=== PATIENT | female | born 1965 | race Caucasian/White ===

== ENCOUNTER 2021-12-15 07:48 | Outpatient (REF) | payer BC, SELFPAY ==
[2021-12-15 11:07] LABS: MANUAL DIFF FLAG NO
[2021-12-15 11:20] LABS: Basophils Absolute Auto 0.1 X10*3/uL (0.0-0.2); Basophils Percent Auto 1.1 % (0-2); Eosinophils Absolute Auto 0.3 X10*3/uL (0.0-0.4); Eosinophils Percent Auto 5.4 % (0-4); Hemoglobin 12.4 g/dl (12.0-16.0); Imm Gran Abs Auto 0.01 X10*3/uL (0.00-0.03); Imm Gran Pct Auto 0.2 % (0.0-0.4); Lymphocytes Absolute Auto 1.6 X10*3/uL (1.2-4.9); Mean Corpuscular HGB Conc 31.8 g/dl (31.0-35.0); Mean Corpuscular Hemoglobin 26.7 pg (27.0-33.0); Mean Corpuscular Volume 84.1 fL (80.0-98.0); Mean Platelet Volume 11.4 fL (9.4-12.3); Monocytes Absolute Auto 0.4 X10*3/uL (0.1-1.2); Monocytes Percent Auto 7.3 % (2-11); Neutrophils Absolute Auto 3.3 x10*3/uL (2.0-8.3); Platelet Count 248 X10*3/uL (160-400); Red Blood Count 4.64 X10*6/uL (4.20-5.50); Red Cell Distribution Width 13.7 % (11.0-16.0); White Blood Count 5.6 X10*3/uL (4.8-10.8)
[2021-12-15 11:22] LABS: Appearance Urine CLEAR; Color Urine YELLOW; Glucose Urine UA NEG (NEG); Leukocyte Esterase Urine NEG (NEG); Nitrite Urine NEG (NEG); PH 7.5 (5.0-8.0); Specific Gravity - Urine 1.015 (1.005-1.025); Urine Blood TRACE (NEG); Urine Ketones NEG (NEG); Urine Protein NEG (NEG-TRACE)
[2021-12-15 11:42] LABS: Alanine Aminotransferase 14 U/L (0-31); Albumin Level 4.1 g/dL (3.5-5.0); Alkaline Phosphatase 77 U/L (39-117); Anion Gap 10 (12-20); Aspartate Amino Transferase 18 U/L (5-31); Bilirubin Total 0.9 mg/dL (0.0-1.0); Blood Urea Nitrogen 21 mg/dL (9-16); Calcium 9.4 mg/dL (8.4-10.2); Carbon Dioxide 30 mmol/L (22-29); Chloride 104 mmol/L (96-108); Cholesterol 174 mg/dL; Estimated Glomerular Filt Rate > 60; Glucose Fasting 86 mg/dL (60-99); HDL Cholesterol 58 mg/dL; LDL Cholesterol Calculated 105 mg/dl; Potassium 4.1 mmol/L (3.3-5.1); Sodium 140 mmol/L (135-145); Total Protein 6.4 g/dL (6.5-8.0); Triglycerides 56 mg/dL
[2021-12-15 12:06] LABS: TSH reflex Free T4 1.04 uIU/mL (0.32-4.0)
[2021-12-15 13:15] LABS: Squamous Epithelial Cell Urine 1+ /LPF
== END 2021-12-15 07:49 | disposition home or self-care (01) ==
LOC: HO.WFDLDS 07:48
PROVIDERS: Visit Provider Family Medicine
DX: Z00.00 Encounter for general adult medical examination without abnormal findings (principal)
CPT/HCPCS: 36415; 80053; 80061; 81001; 84443; 85025

== ENCOUNTER 2023-01-21 07:59 | Outpatient (REF) | payer BC, SELFPAY ==
[2023-01-21 08:12] LABS: MANUAL DIFF FLAG NO
[2023-01-21 08:25] LABS: Basophils Absolute Auto 0.1 X10*3/uL (0.0-0.2); Basophils Percent Auto 1.1 % (0-2); Eosinophils Absolute Auto 0.3 X10*3/uL (0.0-0.4); Eosinophils Percent Auto 6.5 % (0-4); Hematocrit 39.6 % (37.0-47.0); Hemoglobin 13.1 g/dl (12.0-16.0); Imm Gran Abs Auto 0.02 X10*3/uL (0.00-0.03); Imm Gran Pct Auto 0.4 % (0.0-0.4); Lymphocytes Absolute Auto 1.6 X10*3/uL (1.2-4.9); Lymphocytes Percent Auto 30.7 % (20-40); Mean Corpuscular HGB Conc 33.1 g/dl (31.0-35.0); Mean Corpuscular Hemoglobin 27.9 pg (27.0-33.0); Mean Corpuscular Volume 84.4 fL (80.0-98.0); Mean Platelet Volume 10.7 fL (9.4-12.3); Monocytes Absolute Auto 0.4 X10*3/uL (0.1-1.2); Monocytes Percent Auto 8.2 % (2-11); Neutrophils Absolute Auto 2.8 x10*3/uL (2.0-8.3); Neutrophils Percent Auto 53.1 % (45-73); Platelet Count 225 X10*3/uL (160-400); Red Blood Count 4.69 X10*6/uL (4.20-5.50); Red Cell Distribution Width 13.8 % (11.0-16.0); White Blood Count 5.2 X10*3/uL (4.8-10.8)
[2023-01-21 09:20] LABS: Alanine Aminotransferase 15 U/L (0-31); Albumin Level 4.1 g/dL (3.5-5.0); Alkaline Phosphatase 76 U/L (39-117); Anion Gap 13 (12-20); Aspartate Amino Transferase 17 U/L (5-31); Bilirubin Total 0.8 mg/dL (0.0-1.0); Blood Urea Nitrogen 25 mg/dL (9-16); Calcium 9.1 mg/dL (8.4-10.2); Carbon Dioxide 27 mmol/L (22-29); Chloride 107 mmol/L (96-108); Cholesterol 181 mg/dL; Estimated Glomerular Filt Rate > 60; Glucose Fasting 89 mg/dL (60-99); HDL Cholesterol 61 mg/dL; Iron 79 mcg/dL (30-160); LDL Cholesterol Calculated 111 mg/dl; Percent Iron Saturation 29 % (15-50); Potassium 4.2 mmol/L (3.3-5.1); Sodium 143 mmol/L (135-145); TSH reflex Free T4 1.07 uIU/mL (0.32-4.0); Total Iron Binding Capacity 270 mcg/dL (228-428); Total Protein 6.1 g/dL (6.5-8.0); Triglycerides 49 mg/dL; Unsaturated Iron Binding 191 ug/dL; Vitamin D 25-OH Total 64.7 ng/mL (>30)
[2023-01-21 09:33] LABS: Appearance Urine Cloudy; Color Urine Yellow; Glucose Urine UA Negative (Negative); Leukocyte Esterase Urine Negative (Negative); Nitrite Urine Negative (Negative); PH 8.5 (5.0-9.0); UMIC TRIGGER UA YES; Urine Blood Trace (Negative); Urine Ketones Negative (Negative); Urine Protein Negative (Neg-Trace)
[2023-01-21 09:38] LABS: Bacteria Urine None Seen (None Seen); Hyaline Casts Urine 0-2 /LPF (0-2); Squamous Epithelial Cell Urine 0-2 /HPF (0-2); WBC Urine 0-5 /HPF (0-5)
[2023-01-21 10:05] LABS: Creatinine Urine 107.44 mg/dL; Microalbum/Creatinine Ratio Ur 5.5 ug/mg cr
== END 2023-01-21 08:00 | disposition home or self-care (01) ==
LOC: HO.LAB 07:59
PROVIDERS: PCP Family Medicine; Visit Provider Family Medicine
DX: Z00.00 Encounter for general adult medical examination without abnormal findings (principal); E55.9 Vitamin D deficiency, unspecified; E61.1 Iron deficiency; I10 Essential (primary) hypertension
CPT/HCPCS: 36415; 80053; 80061; 81001; 82043; 82306; 83540; 84443; 85025

== ENCOUNTER 2025-06-27 14:52 | Outpatient (AMB) | payer BC, SELFPAY | END 2025-06-27 15:01 | disposition home or self-care (01) | LOC: HO.HMGAL 14:52 | PROVIDERS: PCP Family Medicine; Visit Provider Registered Nurse Emergency | DX: J30.89 Other allergic rhinitis (principal) | CPT/HCPCS: 95117; 95165 ==

== ENCOUNTER 2025-07-04 15:04 | Outpatient (AMB) | payer BC, SELFPAY | END 2025-07-04 15:09 | disposition home or self-care (01) | LOC: HO.HMGAL 15:04 | PROVIDERS: PCP Family Medicine; Visit Provider Registered Nurse Emergency | DX: J30.89 Other allergic rhinitis (principal) | CPT/HCPCS: 95117; 95165 ==

== ENCOUNTER 2025-07-11 16:16 | Outpatient (AMB) | payer BC, SELFPAY | END 2025-07-11 16:18 | disposition home or self-care (01) | LOC: HO.HMGAL 16:16 | PROVIDERS: PCP Family Medicine; Visit Provider Registered Nurse Emergency | DX: J30.89 Other allergic rhinitis (principal) | CPT/HCPCS: 95117; 95165 ==

== ENCOUNTER 2025-07-12 16:23 | Outpatient (AMB) | payer BC, SELFPAY ==
--- NOTE | 2025-07-12 16:24 | MHC.PC.OV ---
Vital Signs 07/12/25 16:29 Height 6 ft 1 in Weight 191 lb 2 oz BMI 25.2 BP 114/68 Blood Pressure Location Rt brachial Position Sitting Respiration 15 Pulse 72 Pulse Source Pulse Oximeter Temp 98 F Temp Source Temporal Artery Scan Pulse Oximetry (%) 96 Oxygen Delivery Method Room Air Intake Visit Reasons: CPE Intake Note: Gia presents in the office today for her annual physical. Allergies penicillin G Allergy (Unknown, Verified 07/12/25 16:27) hair and skin problems penicillin V Allergy (Unknown, Verified 07/12/25 16:27) rash Penicillins (PENICILLINS) Allergy (Unknown, Verified 07/12/25 16:27) HAIR FALLS OUT, BLISTERING SKIN Medication List - Last Reconciled 07/12/25 by KAIT Hernandez loratadine (Claritin) 10 mg PO DAILY Tobacco use date assessed: 07/12/25 Dental Screening Dental Screen Date: 07/12/25 Did you have a dental visit in the last 12 months?: Yes Did you have a dental problem in the last 6 months where you did not have access to dental care?: No Was dental information given to patient?: Patient has dentist HPI HPI Comments History of Present Illness Details This is a 60-year-old female who presents for a physical exam. Donor Services Coordinator is Dr. Borges. She has mammogram and bone densities through that office. She is overdue for a colonoscopy. Referred. Four weeks ago patient caught her left pinky toe on her mother's wheelchair. Since then she has pain and swelling. It is getting better. No numbness or tingling. Initially there was substantial bruising which improved. ROS: Constitutional: No unexplained weight loss, fever, chills, fatigue or night sweats. Eyes: No vision changes, blurry vision, double vision, eye pain. Eye itching related to seasonal allergies treated with lxtd-lgw-gvlbmtn drops. ENT: No hearing loss, sneezing, congestion, runny nose or sore throat. Respiratory: No shortness of breath, cough or sputum production. Cardiovascular: No chest pain, chest pressure or chest discomfort. No palpitations or pedal edema. Gastrointestinal: No anorexia, nausea, vomiting or diarrhea. No abdominal pain or blood in stool. Genitourinary: No dysuria, hematuria, urinary frequency. Neurologic: No headache, dizziness, syncope, unilateral weakness, ataxia, numbness or tingling in the extremities. Musculoskeletal: See HPI Hematologic/Lymphatics: No bleeding or bruising. No painful lymph nodes. Skin: No rash or itching. Endocrine: No cold or heat intolerance. No polyuria or polydipsia. Psychiatric: No depression or anxiety. No SI/HI. Physical exam: Constitutional: Alert, in no distress. Head: Normocephalic. Eyes: Pupils are equal, round and reactive to light. Extraocular muscles intact. Ear, Nose and Throat: Canals clear. TMs normal. Normal nasal mucosa. No nasal discharge. No oral lesions. Neck: Supple, Full range of motion. No lymphadenopathy. No palpable thyroid masses. Respiratory: Clear to auscultation. Cardiovascular: S1 S2 regular. No murmurs. No carotid bruits. Gastrointestinal: Abdomen soft, non-tender, non-distended. Normal bowel sounds. No palpable masses. Neurologic: No focal neurological deficits. Symmetric patellar reflexes. Moves all extremities spontaneously. Sensation intact bilaterally. Skin: No rashes Musculoskeletal: No gross deformities. Normal range of motion. Extremities: Warm and well perfused. No clubbing, cyanosis or edema. Intact pedal pulses. Foot: Neurovascularly intact. Swelling , light ecchymosis and tenderness of the distal left 5th metatarsal and nontender swelling and ecchymosis of the left 5th toe. No obvious deformity. Patient is able to bend the toes and walk. Psychiatric: Normal mood and affect [facility] Medical History (Updated 07/12/25 @ 17:14 by KAIT Hernandez) Injury of foot, left Routine physical examination Social History (Updated 07/12/25 @ 16:29 by Ana Lilia Jay CMA) Housing: House Alcohol intake: current Patient Tobacco Use Status: Never used Tobacco e-Cigarette/Vaping Use: Never Used Second Hand Smoke Exposure: No service: No Current occupational status: employed Current occupational exposures/hazards: No Cognitive needs: No Hearing needs: No Vision needs: No Questionnaire PHQ-9 Over the last 2 weeks, how often have you been bothered by any of the following problems? 1. Little interest or pleasure in doing things: not at all 2. Feeling down, depressed, or hopeless: not at all 3. Trouble falling or staying asleep, or sleeping too much: several days 4. Feeling tired or having little energy: several days 5. Poor appetite or overeating: not at all 6. Feeling bad about yourself - or that you are a failure or have let yourself or your family down: not at all 7. Trouble concentrating on things, such as reading the newspaper or watching television: not at all 8. Moving or speaking so slowly that other people could have noticed. Or the opposite - being so fidgety or restless that you have been moving around a lot more than usual: not at all 9. Thoughts that you would be better off or of hurting yourself in some way: not at all Total score: 2 Depression Screening Interpretation: Negative Depression Screening Done: Yes 95011 - PHQ-9 Billing: Yes Source: Developed by Drs. Doug Melchor, Alma Delia Yee, Prosper Dee and colleagues, with an educational jeremy from [employer]. Thrive Questionnaire Date Thrive assessed: 07/12/25 I am a: Patient What is your living situation today?: I have a steady place to live Within the past 12 months, did the food you bought not last and you didn't have the money to get more?: Never true Within the past 12 months, did you worry whether your food would run out before you got money to buy more?: Never true Do you have trouble paying for medicines?: No Do you have trouble getting transportation to medical appointments?: No Do you have trouble paying your heating and electricity bill?: No Do you have trouble taking care of your child, family member or friend?: No Do you have trouble with day-to-day activities such as bathing, preparing meals, shopping, managing finances, etc.?: No Are you currently unemployed and looking for a job?: No Are you interested in more education?: Yes Please select the resources that you would like help with: None Currently or been in a relationship where the following occur: No concerns reported THRIVE Score: 0 AUDIT C Alcohol Use Questionnaire (AUDIT-C) 1. How often do you have a drink containing alcohol?: 2-4 times a month 2. How many drinks containing alcohol do you have on a typical day when you are drinking?: 1 or 2 3. How often do you have six or more drinks on one occasion?: Never Total Score: 2 SHARLENE-7 AMB Questionnaire SHARLENE-7 Date SHARLENE - 7 assessed: 07/12/25 Feeling nervous, anxious, or on edge: 0 = Not at all Not being able to stop or control worryin = Not at all Worrying too much about different things: 0 = Not at all Trouble relaxin = Not at all Being so restless that it is hard to sit still: 0 = Not at all Becoming easily annoyed or irritable: 0 = Not at all Feeling afraid as if something awful might happen: 0 = Not at all Total SHARLENE-7 score (0-4 normal; 5-9 mild; 10-14 moderate; 15-21 severe): 0 Source: Developed by Drs. Doug Melchor, Alma Delia Yee, Prosper Dee and colleagues, with an educational jeremy from [employer]. SHARLENE-7 Assessment Billing SHARLENE-7 Assessment Tool: SHARLENE-7 Assessment 55034 Physical exam (Primary Care) Vital Signs: Last Vital Signs Temp 98 F 07/12/25 16:29 Pulse 72 07/12/25 16:29 Resp 15 07/12/25 16:29 BP 114/68 07/12/25 16:29 Pulse Ox 96 07/12/25 16:29 Oxygen Delivery Method Room Air 07/12/25 16:29 BMI result Body Mass Index 25.2 Tobacco/Smoking Status: Tobacco use Status Tobacco use date assessed 07/12/25 07/12/25 16:31 Patient Tobacco Use Status Never used Tobacco 07/12/25 16:29 e-Cigarette/Vaping Use Never Used 07/12/25 16:29 PHQ-9: PHQ-9 Score PHQ-9: Total score 2 07/12/25 16:26 Depression Screening Interpretation: Negative Thrive Assessment: Date of Thrive Assessment Date Thrive assessed 07/12/25 07/12/25 16:26 Currently or been in a relationship where the following occur: No concerns reported Coding Level of Care Code Est Pt Prev Care 40-64y(76588) Diagnoses Routine physical examination Z00.00 Additional Codes SHARLENE-7 Assessment Billing - SHARLENE-7 Assessment Tool: SHARLENE-7 Assessment 11839 ([id number]) PHQ-9 - 83745 - PHQ-9 Billing: Yes ([id number]) Assessment & Plan Assessment & Plan (1) Routine physical examination: Code(s): Z00.00 - Encounter for general adult medical examination without abnormal findings Category: Medical Plan Patient is seen today for a routine physical. As part of this visit we reviewed the following issues, which are considered and essential part of preventative health in this age group: - Breast Cancer screening - Annual Stitchdowns Toe Former exam - Screening for colon cancer - Blood pressure screening annually - Cholesterol screening - Osteoporosis prevention including calcium/vitamin D intake, weight bearing exercise & smoking cessation - Nutritional and exercise counseling - Counseling of injury prevention including fire prevention, smoke alarms and seat belt usage - Screening for depression - Education about skin cancer - Recommendations about immunizations - Recommendation of an eye exam - Screening for substance abuse X-ray ordered for evaluation of left foot trauma. Schedule physical in 1 year. Orders: Orders Lipid Panel Today Z00.00 - Encounter for general adult medical examination without abnormal findings XR foot LT min 3V Today S99.922A - Unspecified injury of left foot, initial encounter Complete Blood Count no Diff Today Z00.00 - Encounter for general adult medical examination without abnormal findings Comprehensive Met. Panel Today Z00.00 - Encounter for general adult medical examination without abnormal findings Referrals Gastroenterology Referral Z12.11 - Encounter for screening for malignant neoplasm of colon
[2025-07-12 16:29] VITALS: BP 114/68; PULSE 72; RESP 15; TEMP 36.6; O2SAT 96; BMI 25.2
== END 2025-07-12 16:57 | disposition home or self-care (01) ==
LOC: HO.HMCFM 16:24
PROVIDERS: PCP Family Medicine; Visit Provider Physician Assistant Medical
DX: Z00.00 Encounter for general adult medical examination without abnormal findings (principal)

== ENCOUNTER → 2025-07-12 16:23 | Outpatient (BNVA) | payer BC, SELFPAY | PROVIDERS: PCP Family Medicine; Visit Provider Physician Assistant Medical | DX: Z00.01 Encounter for general adult medical examination with abnormal findings (principal); S99.922A Unspecified injury of left foot, initial encounter; Z13.31 Encounter for screening for depression; Z13.39 Encounter for screening examination for other mental health and behavioral disorders; X58.XXXA Exposure to other specified factors, initial encounter; Y93.9 Activity, unspecified; Y92.9 Unspecified place or not applicable; Y99.9 Unspecified external cause status | CPT/HCPCS: 96127 ==

== ENCOUNTER 2025-07-18 16:23 | Outpatient (AMB) | payer BC, SELFPAY | END 2025-07-18 16:24 | disposition home or self-care (01) | LOC: HO.HMGAL 16:23 | PROVIDERS: PCP Family Medicine; Visit Provider Registered Nurse Emergency | DX: J30.89 Other allergic rhinitis (principal) | CPT/HCPCS: 95117; 95165 ==

== ENCOUNTER 2025-07-19 07:49 | Outpatient (REF) | payer BC, SELFPAY ==
--- NOTE | ~2025-07-19 | XR_ITS ---
EXAMINATION: XR FOOT, LEFT CLINICAL INFORMATION: S99.922A - Unspecified injury of left foot, initial encounter COMPARISON: None available. TECHNIQUE: AP, lateral, and oblique views of the left foot. FINDINGS: Subacute appearing, partially healing minimally displaced spiral fracture of the fifth digit proximal phalanx involving the diaphysis. There is some periosteal new bone formation noted suggesting healing. The fifth metatarsal is intact. There is no additional fracture, dislocation, or suspicious bone lesion. Alignment is normal. Normal plantar arch. The midfoot and hindfoot appear normal. There is a small plantar calcaneal spur. No soft tissue abnormalities. XR/XR foot LT min 3V IMPRESSION: Subacute, healing minimally displaced spiral fracture of the proximal phalanx of the fifth digit. Electronically signed by: Saad Villanueva MD 07/19/2025 08:40 AM EDT
[2025-07-19 08:46] LABS: Hematocrit 40.7 % (37.0-47.0); Hemoglobin 13.4 g/dl (12.0-16.0); Mean Corpuscular HGB Conc 32.9 g/dl (31.0-35.0); Mean Corpuscular Hemoglobin 27.3 pg (27.0-33.0); Mean Corpuscular Volume 83.1 fL (80.0-98.0); NRBC Abs Auto 0.000 X10*3/uL (0.0-0.012); NRBC Pct Auto 0.0 /100WBC (0.0-0.2); Platelet Count 229 X10*3/uL (160-400); Red Blood Count 4.90 X10*6/uL (4.20-5.50); White Blood Count 5.5 X10*3/uL (4.8-10.8)
[2025-07-19 09:47] LABS: Alanine Aminotransferase 18 U/L (0-31); Albumin Level 4.5 g/dL (3.5-5.0); Alkaline Phosphatase 83 U/L (39-117); Anion Gap 9 (12-20); Aspartate Amino Transferase 22 U/L (5-31); Blood Urea Nitrogen 20 mg/dL (9-16); Calcium 9.3 mg/dL (8.4-10.2); Carbon Dioxide 29 mmol/L (22-29); Chloride 108 mmol/L (96-108); Cholesterol 178 mg/dL (<200); Estimated Glomerular Filt Rate > 60; HDL Cholesterol 65 mg/dL (>40); Potassium 4.0 mmol/L (3.3-5.1); Sodium 142 mmol/L (135-145); Total Protein 6.5 g/dL (6.5-8.0); Triglycerides 56 mg/dL (<150)
== END 2025-07-19 07:50 | disposition home or self-care (01) ==
LOC: HO.LAB 07:49
PROVIDERS: PCP Physician Assistant Medical; Visit Provider Physician Assistant Medical
DX: Z00.00 Encounter for general adult medical examination without abnormal findings (principal); Z13.6 Encounter for screening for cardiovascular disorders; S99.922A Unspecified injury of left foot, initial encounter
CPT/HCPCS: 36415; 73630; 80053; 80061; 85027

== ENCOUNTER → 2025-07-19 08:09 | Outpatient (BNV) | payer BC, SELFPAY | PROVIDERS: PCP Physician Assistant Medical; Visit Provider Radiology Diagnostic Radiology | DX: S99.922D Unspecified injury of left foot, subsequent encounter (principal) | CPT/HCPCS: 73630 ==

== ENCOUNTER 2025-07-26 14:25 | Outpatient (AMB) | payer BC, SELFPAY ==
--- NOTE | 2025-07-26 14:42 | A.OFFVIS_ITS ---
Vital Signs 07/26/25 14:43 Height 6 ft 1 in Weight 190 lb BMI 25.1 Intake Visit Reasons: 5th digit fracture left side Intake Note: Gia is a 60 year old female who presents today as a new patient for an evaluation of her left 5th toe fracture. Pt states the injury occurred early in may and it was due to her stubbing her toe on a wheel from a wheelchair. she states she has no history of previous fractures and she has not had this addressed else where so she was not provided with a boot or a brace. Patient reports when the incident occurred she had taken OTC ibuprofen however at this time she is not having any pain so she has stoped the ibuprofen. IMPRESSION: Subacute, healing minimally displaced spiral fracture of the proximal phalanx of the fifth digit. Allergies penicillin G Allergy (Unknown, Verified 07/26/25 14:43) hair and skin problems penicillin V Allergy (Unknown, Verified 07/26/25 14:43) rash Penicillins (PENICILLINS) Allergy (Unknown, Verified 07/26/25 14:43) HAIR FALLS OUT, BLISTERING SKIN Medication List - Last Reconciled 07/26/25 by Tawny Ha DPM loratadine (Claritin) 10 mg PO DAILY HPI Comments Details: The patient is a 60-year-old female with a past medical history as seen below presenting with a fracture of the left 5th toe. The injury occurred in early May when the patient accidentally stubbed her toe, resulting in bruising and swelling. Initially, the bruise was localized but spread over the forefoot two weeks before receding. The patient did not experience significant pain, describing only a sensation of swelling and pressure in the toe. She [place] seek immediate medical [place] opting instead to apply ice and wear sneakers for support. The patient obtained xrays upon return and saw her PA who suggested follow up with podiatry. She states she experiences minimal spontaneous pain and her symptoms have significantly improved since the injury. She denies ay other pedal concerns. [facility] Medical History (Updated 07/26/25 @ 19:07 by Tawny Ha DPM) Pain in toe of left foot Fracture of fifth toe, left, closed Injury of foot, left Routine physical examination Social History (Updated 07/12/25 @ 16:29 by [facility] Lilia [facility] House Alcohol intake: current Patient Tobacco Use Status: Never used Tobacco e-Cigarette/Vaping Use: Never Used Second Hand Smoke Exposure: No service: No Current occupational status: employed Current occupational exposures/hazards: No Cognitive needs: No Hearing needs: No Vision needs: No Review of Systems Const Details: - Musculoskeletal: Reports sensation of swelling/pressure in the little toe, denies significant pain, tingling, or numbness. All systems reviewed & are unremarkable except as noted in HPI and below Physical Exam Vital Signs: BMI result Body Mass Index 25.1 Extrem Other: LLE Focused Physical Exam: Derm: Edema noted to the 5th toe. No open lesions, abrasions, or wounds noted. No ecchymosis or discoloration noted. No clinical signs of infection noted. Skin supple and turgor WNL. Vasc: DP/PT pulses palpable. CFT < 3 secs. Temp gradient warm to warm. Pedal hair absent. No varicosities noted. Neuro: Protective sensations grossly intact. MSK: No pain on palpation to the 5th toe. Minimal discomfort with range of motion of 5th toe. ROM of the remaining forefoot, hindfoot, and ankle WNL. No crepitus noted. Nonantalgic gait unassisted noted. Office Procedures AMB Podiatry Dressing Details of Procedure: Applied coban to the left 5th toe. 63417 Strapping of foot/toe Procedure code (CPT) selection complete Results Reviewed Results Reviewed: Podiatry read of Left foot 3 views xrays (07/19/25): Spiral fracture noted to the shaft of the proximal phalanx of the 5th toe with healing noted due to bone callus formation and bridging. Left foot 3 views xrays (07/19/25): FINDINGS: Subacute appearing, partially healing minimally displaced spiral fracture of the fifth digit proximal phalanx involving the diaphysis. There is some periosteal new bone formation noted suggesting healing. The fifth metatarsal is intact. There is no additional fracture, dislocation, or suspicious bone lesion. Alignment is normal. Normal plantar arch. The midfoot and hindfoot appear normal. There is a small plantar calcaneal spur. No soft tissue abnormalities. XR/XR foot LT min 3V IMPRESSION: Subacute, healing minimally displaced spiral fracture of the proximal phalanx of the fifth digit. Assessment & Plan Assessment & Plan (1) Injury of foot, left: Code(s): S99.922A - Unspecified injury of left foot, initial encounter Category: Medical Qualifiers: Encounter type: initial encounter Qualified Code(s): S99.922A - Unspecified injury of left foot, initial encounter (2) Fracture of fifth toe, left, closed: Comment: spiral fracture of the proximal phalanx of the 5th digit Code(s): S92.502A - Displaced unspecified fracture of left lesser toe(s), initial encounter for closed fracture Category: Medical Qualifiers: Encounter type: initial encounter Qualified Code(s): S92.502A - Displaced unspecified fracture of left lesser toe(s), initial encounter for closed fracture (3) Pain in toe of left foot: Code(s): M79.675 - Pain in left toe(s) Category: Medical Plan Patient was informed and verbally consented to the use of an ambient scribe for clinic note documentation during this visit. I discussed with the patient that the fracture of the little toe is healing well without complications. We reviewed xrays and reviewed the importance of wearing supportive footwear to prevent future injuries. I advised using a coban and RICE protocol if swelling occurs and reassured her that no further intervention is necessary at this time.\ - Applied coban to the left 5th toe and advised the patient to use coban if swelling occurs to help reduce it. - Recommend wearing supportive footwear to prevent further injury. - Patient is to avoid barefoot walking. - Patient may be WBAT to the LLE in supportive shoe gear. Patient may follow up as needed. Orders: Orders AMB Podiatry Dressing Today M79.675 - Pain in left toe(s), S92.502A - Displaced unspecified fracture of left lesser toe(s), initial encounter for closed fracture, S99.922A - Unspecified injury of left foot, initial encounter Coding Level of Care Code New Pt Level 4 (86983) Diagnoses Injury of left foot, initial encounter S99.922A Encounter type: initial encounter Closed fracture of phalanx of left fifth toe, initial encounter S92.502A Encounter type: initial encounter Pain in toe of left foot M79.675 CPT Codes Podiatry Dressing - CPT: 40296 Strapping of foot/toe ([id number]) Time Spent (min) 50
[2025-07-26 14:43] VITALS: BMI 25.1
--- OUTSIDE RECORDS SUMMARY | 2025-07-26 16:02 | XMS_ITS | Clinical Summary ---
Author Organization [facility] ity Address [address] [place] [address] Care Team Providers Care Rn Utilization Management Um Name Role Phone Rick Alfaro DO Primary Care Provider [phone] Social History Tobacco Use Types Packs/Day Years Used Date Smoking Tobacco: Never Assessed Comments Unknown Sex and Gender Information Value Date Recorded Sex Assigned at Not on file Legal Sex Female 7:59 PM EST Gender Identity Not on file Sexual Orientation Not on file Plan of Treatment Upcoming Encounters Date Type Department Care Team (Late st Contact Info) Description 08/01/2025 2:45 PM EDT [facility]ointment [facility] [address] [address] Health Maintenance Due Date Last Done Comments Colorectal Cancer Screening: Colonoscopy 1965 DTaP,Tdap,and Td Vaccines (1 - Tdap) 1984 Cervical Cancer Screening: Pap Smear 1986 Pneumococcal Vaccine: 50+ Years (1 of 1 - PCV) 2015 Zoster Vaccines (1 of 2) 2015 HIV Screening 09/26/2022 Hepatitis C Screening 09/26/2022 Social Influencers of Health Screening 09/26/2022 Depression Screening 10/25/2024 COVID-19 Vaccine ( season) 2025 Influenza Vaccine (#1) 2025 Breast Cancer Screening 04/19/2026 04/19/20 24, 02/24/2023, 02/24/2022, Additional history exists RSV Immunization Adult Patients (1 - 1-dose 75+ series) 2040 HIB Vaccines Aged Out No longer eligi ble based on patient's age to complete this topic HPV Vaccines Aged Out No longer eligi ble based on patient's age to complete this topic Hepatitis A Vaccines Aged Out No long er eligible based on patient's age to complete this topic Hepatitis B Vaccines Aged Out No long er eligible based on patient's age to complete this topic IPV Vaccines Aged Out No longer eligi ble based on patient's age to complete this topic MMR Vaccines Aged Out No longer eligi ble based on patient's age to complete this topic Meningococcal ACWY Vaccine Aged Out N o longer eligible based on patient's age to complete this topic Meningococcal B Vaccine Aged Out No l onger eligible based on patient's age to complete this topic RSV Immunization Patients Under 20 months Aged Out No longer eligible based on patient's age to complete this topic Varicella Vaccines Aged Out No longer eligible based on patient's age to complete this topic Procedures Procedure Name Priority Date/Time Associated Diagnosis Comments [facility] Routine 04/19/2024 9:42 AM EDT Encounter for screening mammogram for malignant neoplasm of breast from Last 3 Months or Most Recently Relevant to Health Maintenance Results * [facility] (04/19/2024 9:42 AM EDT) Anatomical Region Laterality Modality Mammography 04/19/2024 7:44 AM EDT Narrative 04/19/2024 9:42 AM EDT [facility] Diagnostic Imaging Department [address] [place] [address] Patient: JOECANDICEA /Age/Sex: 1965 - 58 - F Unit#: [id number] Location/Status: SPDIMA/REG CLI Mnemonic/Ordering Site: [facility] Ordering Physician: LORNA SOLANO MD [facility] Screening Digital - 04/19/24 - [id number] Report Status:Signed EXAM: [facility] Screening Digital EXAM DATE AND TIME: 04/19/2024 8:00 AM HISTORY: Screening. Mother had breast carcinoma at age 70. COMPARISON: 02/24/23, 02/23/22, 07/03/20 TECHNIQUE: Bilateral digital breast tomosynthesis was performed in the CC and MLO projections. Computer aided detection with 36Kr 3D 3.1 was employed. TISSUE DENSITY: b. There are scattered areas of fibroglandular density. FINDINGS: No suspicious masses, grouped microcalcifications, or areas of architectural distortion are seen. The skin and vascularity are unremarkable. IMPRESSION: Stable mammographic appearance of the breasts. No evidence of malignancy is seen. A negative mammogram in the presence of a clinically suspicious palpable abnormality does not preclude the possibility of malignancy or alter the indications for biopsy. BI-RADS: Category 1: Negative RECOMMENDATION(S): 1: Routine screening mammogram BILATERAL in 1 year. Dictating Physician: RODRIGO BEDOYA MD Electronically Signed by: RODRIGO BEDOYA MD Dic Date/Time: 04/19/24941 Sign date/Time: 04/19/24941 Procedure Note Rodrigo Bedoya MD - 08/09/2024 [facility] Diagnostic Imaging Department [address] [place] [address] Patient: GIA AMADOR D.O.B./Age/Sex: 1965 - 58 - F Unit#: [id number] Location/Status: SPDIMAM/REG CLI Mnemonic/Ordering Site: [facility] Ordering Physician: LORNA SOLANO MD [facility] Screening Digital - 04/19/24 - [id number] Report Status:Signed EXAM: [facility] Screening Digital EXAM DATE AND TIME: 04/19/2024 8:00 AM HISTORY: Screening. Mother had breast carcinoma at age 70. COMPARISON: 02/24/23, 02/23/22, 07/03/20 TECHNIQUE: Bilateral digital breast tomosynthesis was performed in the CCand MLO projections. Computer aided detection with 36Kr 3D 3.1was employed. TISSUE DENSITY: b. There are scattered areas of fibroglandular density. FINDINGS: No suspicious masses, grouped microcalcifications, or areas ofarchitectural distortion are seen. The skin and vascularity are unremarkable. IMPRESSION: Stable mammographic appearance of the breasts. No evidence of malignancyis seen. A negative mammogram in the presence of a clinically suspicious palpable abnormality does not preclude the possibility of malignancy or alter the indications for biopsy. BI-RADS: Category 1: Negative RECOMMENDATION(S): 1: Routine screening mammogram BILATERAL in 1 year. Dictating Physician: RODRIGO BEDOYA MD Electronically Signed by: RODRIGO BEDOYA MD Dic Date/Time: 04/19/24941 Sign date/Time: 04/19/24941 Lorna Solano MD IMG BI PROCEDURES Final Result from Last 3 Months or Most Recently Relevant to Health Maintenance Insurance [facility] Care Teams Rn Utilization Management Um Relationship Specialty Start Date End Date Rick Alfaro DO [facility] [address] [place] [address] PCP - General Family Medicine 07/04/18
== END 2025-07-26 15:05 | disposition home or self-care (01) ==
LOC: HO.HPODS 14:26
PROVIDERS: PCP Physician Assistant Medical; Visit Provider Student in an Organized Health Care Education/Training Program
DX: S99.922A Unspecified injury of left foot, initial encounter (principal); S92.502A Displaced unspecified fracture of left lesser toe(s), initial encounter for closed fracture; M79.675 Pain in left toe(s); S90.934A Unspecified superficial injury of right lesser toe(s), initial encounter
CPT/HCPCS: 29550; 99203

== ENCOUNTER → 2025-07-26 14:25 | Outpatient (BNVA) | payer BC, SELFPAY | PROVIDERS: PCP Physician Assistant Medical; Visit Provider Student in an Organized Health Care Education/Training Program | DX: S92.912A Unspecified fracture of left toe(s), initial encounter for closed fracture (principal); W22.8XXA Striking against or struck by other objects, initial encounter; Y92.9 Unspecified place or not applicable | CPT/HCPCS: 29550 ==

== ENCOUNTER 2025-08-01 15:54 | Outpatient (AMB) | payer BC, SELFPAY | END 2025-08-01 15:55 | disposition home or self-care (01) | LOC: HO.HMGAL 15:54 | PROVIDERS: Visit Provider Registered Nurse Emergency | DX: J30.89 Other allergic rhinitis (principal) | CPT/HCPCS: 95117; 95165 ==

== ENCOUNTER 2025-08-13 15:55 | Outpatient (AMB) | payer BC, SELFPAY | END 2025-08-13 15:56 | disposition home or self-care (01) | LOC: HO.HMGAL 15:55 | PROVIDERS: Visit Provider Registered Nurse Emergency | DX: J30.89 Other allergic rhinitis (principal) | CPT/HCPCS: 95117; 95165 ==

== ENCOUNTER 2025-08-22 15:51 | Outpatient (AMB) | payer BC, SELFPAY ==
--- OUTSIDE RECORDS SUMMARY | 2025-08-22 19:59 | XMS_ITS | Clinical Summary ---
Author Organization [facility] Address [address] [place] [address] Phone Care Team Providers Care Rn Or Lvn Name Role Phone Rick Alfaro DO Primary Care Provider [phone] Encounters Date Type Department Care Team Description 08/01/2025 2:44 PM EDT - 08/01/2025 11:59 PM EDT [facility] [address] [phone] Encounter for screening mammogram for breast cancer Discharge Disposition: Home or Self Care from Last 3 Months Family History Medical History Relation Name Comments Breast cancer Paternal Grandmother Relation Name Status Comments Paternal Grandmother Social History Tobacco Use Types Packs/Day Years Used Date Smoking Tobacco: Never Assessed Comments No Sex and Gender Information Value Date Recorded Sex Assigned at Not on file Legal Sex Female 7:59 PM EST Gender Identity Not on file Sexual Orientation Not on file Obstetrics History Para Term AB IAB SAB Ectopic Multiple Livin g Live Births 3 Last Filed Vital Signs Vital Sign Reading Time Taken Comments Blood Pressure - - Pulse - - Temperature - - Respiratory Rate - - Oxygen Saturation - - Inhaled Oxygen Concentration - - Weight 85.3 kg (188 lb) 08/01/2025 3:05 PM EDT Height 185.4 cm (6' 1 ) 08/01/2025 3:05 PM EDT Body Mass Index 24.8 08/01/2025 3:05 PM EDT Plan of Treatment Health Maintenance Due Date Last Done Comments Colorectal Cancer Screening: Colonoscopy 1965 DTaP,Tdap,and Td Vaccines (1 - Tdap) 1984 Cervical Cancer Screening: Pap Smear 1986 Pneumococcal Vaccine: 50+ Years (1 of 1 - PCV) 2015 HIV Screening 09/26/2022 Hepatitis C Screening 09/26/2022 Social Influencers of Health Screening 09/26/2022 Depression Screening 10/25/2024 Influenza Vaccine (#1) 2025 , 09/08/2023, 09/01/2022, Additional history exists Breast Cancer Screening 08/01/2027 08/01/20, 04/19/2024, 02/24/2023, Additional history exists RSV Immunization Adult Patients (1 - 1-dose 75+ series) 2040 COVID-19 Vaccine Completed 08/29/2024, , 08/17/2022, Additional history exists Zoster Vaccines Completed 06/18/2025, 10/08/2024 HIB Vaccines Aged Out No longer eligi [...] Procedure Name Priority Date/Time Associated Diagnosis Comments MG MAMMO DIGITAL SCREENING W GIL BILAT Routine 08/01/2025 3:11 PM EDT Encounter for screening mammogram for breast cancer from Last 3 Months Results * MG Mammo Digital Screening w Gil bilat (08/01/2025 3:11 PM EDT) Anatomical Region Laterality Modality Breast Bilateral Mammography 08/01/2025 3:43 PM EDT Impressions 08/01/2025 5:55 PM EDT No mammographic evidence of malignancy. No suspicious interval change. A negative mammogram in the presence of a clinically suspicious palpable abnormality does not preclude the possibility of malignancy or alter the indications for biopsy. ASSESSMENT: BI-RADS 1: NEGATIVE RECOMMENDATION(S): 1: Routine screening mammogram BILATERAL in 1 year. [facility] [address], [address] -------- FINAL REPORT -------- Dictated By: Nilson Stubbs Dictated Date: 08/01/2025 15:43 ET Assigned Physician: Nilson Stubbs Reviewed and Electronically Signed By: Nilson Stubbs Signed Date: 08/01/2025 17:55 ET Workstation ID: [id number] Transcribed By: Self Edit Transcribed Date: 08/01/2025 15:43 ET Narrative 08/01/2025 5:55 PM EDT EXAM: SCREENING MAMMOGRAPHY, BILATERAL HISTORY: SCREENING. Paternal grandmother with history of breast cancer. COMPARISON: 04/19/24, 02/24/23, 02/23/22 TECHNIQUE: Synthesized CC and MLO projections of each breast. Tomosynthesis of each breast in the CC and MLO projections. ADDITIONAL IMAGING: None Computer-aided detection was employed with the [employer] 3-D. TISSUE DENSITY: There are scattered areas of fibroglandular density. (BI-RADS category B) FINDINGS: RIGHT BREAST: No suspicious mass. No suspicious calcification. No distortion. No additional suspicious right breast findings LEFT BREAST: No suspicious mass. No suspicious calcification. No distortion. No additional suspicious left breast findings Procedure Note Nilson Stubbs MD - 08/01/2025 EXAM: SCREENING MAMMOGRAPHY, BILATERAL HISTORY: SCREENING. Paternal grandmother with history of breastcancer. COMPARISON: 04/19/24, 02/24/23, 02/23/22 TECHNIQUE: Synthesized CC and MLO projections of each breast.Tomosynthesis of each breast in the CC and MLO projections. ADDITIONAL IMAGING: None Computer-aided detection was employed with the [employer] 3-D. TISSUE DENSITY: There are scattered areas of fibroglandular density.(BI-RADS category B) FINDINGS: RIGHT BREAST: No suspicious mass. No suspicious calcification. No distortion. Noadditional suspicious right breast findings LEFT BREAST: No suspicious mass. No suspicious calcification. No distortion. Noadditional suspicious left breast findings IMPRESSION: No mammographic evidence of malignancy. No suspicious interval change. A negative mammogram in the presence of a clinically suspicious palpableabnormality does not preclude the possibility of malignancy or alter theindications for biopsy. ASSESSMENT: BI-RADS 1: NEGATIVE RECOMMENDATION(S): 1: Routine screening mammogram BILATERAL in 1 year. [facility] location[facility] at [address], [address] -------- FINAL REPORT -------- Dictated By: Nilson Stubbs Dictated Date: 08/01/2025 15:43 ET Assigned Physician: Nilson Stubbs Reviewed and Electronically Signed By: Nilson Stubbs Signed Date: 08/01/2025 17:55 ET Workstation ID: [id number] Transcribed By: Self Edit Transcribed Date: 08/01/2025 15:43 ET us Self Referral Sppl IMG BI PROCEDURES Final Resul t from Last 3 Months Insurance [facility] Care Teams Rn Or Lvn Relationship Specialty Start Date End Date Rick Alfaro DO [address] [address] PCP - General Family Medicine 07/04/18
== END 2025-08-22 15:52 | disposition home or self-care (01) ==
LOC: HO.HMGAL 15:51
PROVIDERS: Visit Provider Registered Nurse Emergency
DX: J30.89 Other allergic rhinitis (principal)
CPT/HCPCS: 95117; 95165

== ENCOUNTER 2025-09-03 16:16 | Outpatient (AMB) | payer BC, SELFPAY ==
--- OUTSIDE RECORDS SUMMARY | 2025-09-03 17:58 | XMS_ITS | Clinical Summary ---
Author Organization [facility] Address [address] [place] [address] Phone Care Team Providers Care Art Psychotherapist Name Role Phone Rick Alfaro DO Primary Care Provider [phone] Encounters Date Type Department Care Team Description 08/01/2025 2:44 PM EDT - 08/01/2025 11:59 PM EDT [facility] at [address] [phone] Encounter for screening mammogram for breast cancer [...] year. [facility]ammography location[facility] [address], [address] -------- FINAL REPORT -------- Dictated By: Nilson Stubbs Dictated Date: 08/01/2025 15:43 ET Assigned Physician: Nilson Stubbs Reviewed and Electronically Signed By: Nilson Stubbs Signed Date: 08/01/2025 17:55 ET Workstation ID: [id number] Transcribed By: Self Edit Transcribed Date: 08/01/2025 15:43 ET Narrative 08/01/2025 5:55 PM EDT EXAM: SCREENING MAMMOGRAPHY, BILATERAL HISTORY: SCREENING. Paternal grandmother with history of breast cancer. COMPARISON: 04/19/24, 02/24/23, 02/23/22 TECHNIQUE: Synthesized CC and MLO projections of each breast. Tomosynthesis of each breast in the CC and MLO projections. ADDITIONAL IMAGING: None Computer-aided detection was employed with the [employer] 3-D. TISSUE DENSITY: There are scattered areas [...] year. [facility]ammography location[facility] at [address], [address] -------- FINAL REPORT -------- Dictated By: Nilson Stubbs Dictated Date: 08/01/2025 15:43 ET Assigned Physician: Nilson Stubbs Reviewed and Electronically Signed By: Nilson Stubbs Signed Date: 08/01/2025 17:55 ET Workstation ID: [id number] Transcribed By: Self Edit Transcribed Date: 08/01/2025 15:43 ET us Self Referral Sppl IMG BI PROCEDURES Final Resul t from Last 3 Months Insurance [facility] Care Teams Art Psychotherapist Relationship Specialty Start Date End Date Rick Alfaro DO [address] [address] PCP - General Family Medicine 07/04/18
== END 2025-09-03 16:16 | disposition home or self-care (01) ==
LOC: HO.HMGAL 16:16
PROVIDERS: Visit Provider Registered Nurse Emergency
DX: J30.89 Other allergic rhinitis (principal)
CPT/HCPCS: 95117; 95165

== ENCOUNTER 2025-09-10 16:03 | Outpatient (AMB) | payer BC, SELFPAY | END 2025-09-10 16:04 | disposition home or self-care (01) | LOC: HO.HMGAL 16:03 | PROVIDERS: Visit Provider Registered Nurse Emergency | DX: J30.89 Other allergic rhinitis (principal) | CPT/HCPCS: 95117; 95165 ==

== ENCOUNTER 2025-09-17 16:09 | Outpatient (AMB) | payer BC, SELFPAY ==
--- OUTSIDE RECORDS SUMMARY | 2025-09-17 20:22 | XMS_ITS | Clinical Summary ---
Author Organization [facility] Address [address] [place] [address] Phone Care Team Providers Care Loom Fixer Name Role Phone Rick Alfaro DO Primary Care Provider [phone] Encounters Date Type Department Care Team Description 08/01/2025 2:44 PM EDT - 08/01/2025 11:59 PM EDT [facility] at [address] [phone] Encounter for screening mammogram for breast cancer [...] Screening 10/25/2024 COVID-19 Vaccine ( season) 2025 08/29/2024, 09/08/2023, 08/17/2022, Additional history exists Influenza Vaccine (#1) 2025 , 09/08/2023, 09/01/2022, Additional history exists Breast Cancer Screening 08/01/2027 08/01/20, 04/19/2024, 02/24/2023, Additional history exists RSV Immunization Adult Patients (1 - 1-dose 75+ series) 2040 Zoster Vaccines Completed 06/18/2025, 10/08/2024 HIB Vaccines [...] year. [facility]amm[facility] at [address], [address] -------- FINAL REPORT -------- Dictated By: Nilson Stubbs Dictated Date: 08/01/2025 15:43 ET Assigned Physician: Nilson Stubbs Reviewed and Electronically Signed By: Nilson Stubbs Signed Date: 08/01/2025 17:55 ET Workstation ID: [id number] Transcribed By: Self Edit Transcribed Date: 08/01/2025 15:43 ET Narrative 08/01/2025 5:55 PM EDT EXAM: SCREENING MAMMOGRAPHY, BILATERAL HISTORY: SCREENING. Paternal grandmother with history of breast cancer. COMPARISON: 04/19/24, 02/24/23, 02/23/22 TECHNIQUE: Synthesized CC and MLO projections of each breast. Tomosynthesis of each breast in the CC and MLO projections. ADDITIONAL IMAGING: None Computer-aided detection was employed with the [employer] 3-D. TISSUE DENSITY: There are scattered areas [...] year. Mammography location: [facility] at [address], [address] -------- FINAL REPORT -------- Dictated By: Nilson Stubbs Dictated Date: 08/01/2025 15:43 ET Assigned Physician: Nilson Stubbs Reviewed and Electronically Signed By: Nilson Stubbs Signed Date: 08/01/2025 17:55 ET Workstation ID: [id number] Transcribed By: Self Edit Transcribed Date: 08/01/2025 15:43 ET us Self Referral Sppl IMG BI PROCEDURES Final Resul t from Last 3 Months Insurance [facility] Care Teams Loom Fixer Relationship Specialty Start Date End Date Rick Alfaro DO [address] [address] PCP - General Family Medicine 07/04/18
== END 2025-09-17 16:10 | disposition home or self-care (01) ==
LOC: HO.HMGAL 16:09
PROVIDERS: Visit Provider Registered Nurse Emergency
DX: J30.89 Other allergic rhinitis (principal)
CPT/HCPCS: 95117; 95165

== ENCOUNTER 2025-10-01 15:49 | Outpatient (AMB) | payer BC, SELFPAY ==
--- OUTSIDE RECORDS SUMMARY | 2025-10-02 01:24 | XMS_ITS | Clinical Summary ---
Author Organization [facility] Address [address] [place] [address] Phone Care Team Providers Care Medical Information Officer Name Role Phone Rick Alfaro DO Primary Care Provider [phone] Encounters Date Type Department Care Team Description 08/01/2025 2:44 PM EDT - 08/01/2025 11:59 PM EDT [facility] at [address] [phone] Encounter for screening mammogram for breast cancer [...] Diagnosis Comments MG MAMMO DIGITAL SCREENING W GLI BILAT Routine 08/01/2025 3:11 PM EDT Encounter [...] year. [facility]amm[facility] location[facility] at [address], [address] -------- FINAL REPORT -------- Dictated By: Nilson Stubbs Dictated Date: 08/01/2025 15:43 ET Assigned Physician: Nilson Stubbs Reviewed and Electronically Signed By: Nilson Stubbs Signed Date: 08/01/2025 17:55 ET Workstation ID: [id number] Transcribed By: Self Edit Transcribed Date: 08/01/2025 15:43 ET Narrative 08/01/2025 5:55 PM EDT EXAM: SCREENING MAMMOGRAPHY, BILATERAL HISTORY: SCREENING. Paternal grandmother with history of breast cancer. COMPARISON: 04/19/24, 02/24/23, 02/23/22 TECHNIQUE: Synthesized CC and MLO projections of each breast. Tomosynthesis of each breast in the CC and MLO projections. ADDITIONAL IMAGING: None Computer-aided detection was employed with the [employer] 3-D. TISSUE DENSITY: There are scattered areas [...] year. [facility]ammography location[facility] at [address], [address] -------- FINAL REPORT -------- Dictated By: Nilson Stubbs Dictated Date: 08/01/2025 15:43 ET Assigned Physician: Nilson Stubbs Reviewed and Electronically Signed By: Nilson Stubbs Signed Date: 08/01/2025 17:55 ET Workstation ID: [id number] Transcribed By: Self Edit Transcribed Date: 08/01/2025 15:43 ET us Self Referral Sppl IMG BI PROCEDURES Final Resul t from Last 3 Months Insurance [facility] Care Teams Medical Information Officer Relationship Specialty Start Date End Date Rick Alfaro DO [address] [address] PCP - General Family Medicine 07/04/18
== END 2025-10-01 15:50 | disposition home or self-care (01) ==
LOC: HO.HMGAL 15:49
PROVIDERS: Visit Provider Registered Nurse Emergency
DX: J30.89 Other allergic rhinitis (principal)
CPT/HCPCS: 95117; 95165

== ENCOUNTER 2025-10-10 16:02 | Outpatient (AMB) | payer BC, SELFPAY ==
--- OUTSIDE RECORDS SUMMARY | 2025-10-10 20:48 | XMS_ITS | Clinical Summary ---
Author Organization [facility] Address [address] [place] [address] Phone Care Team Providers Care Curator [employer] Name Role Phone Rick Alfaro DO Primary Care Provider Encounters Date Type Department Care Team Description 08/01/2025 2:44 PM EDT - 08/01/2025 11:59 PM EDT [facility] at [address] [phone] Encounter for screening mammogram for breast cancer [...] year. [facility]ammography location[facility] at [address], [address] -------- FINAL REPORT -------- Dictated By: Nilson Stubbs Dictated Date: 08/01/2025 15:43 ET Assigned Physician: Nilson Stubbs Reviewed and Electronically Signed By: Nilson Stubbs Signed Date: 08/01/2025 17:55 ET Workstation ID: [id number] Transcribed By: Self Edit Transcribed Date: 08/01/2025 15:43 ET Narrative 08/01/2025 5:55 PM EDT EXAM: SCREENING MAMMOGRAPHY, BILATERAL HISTORY: SCREENING. Paternal grandmother with history of breast cancer. COMPARISON: 04/19/24, 02/24/23, 02/23/22 TECHNIQUE: Synthesized CC and MLO projections of each breast. Tomosynthesis of each breast in the CC and MLO projections. ADDITIONAL IMAGING: None Computer-aided detection was employed with the [employer] 3-D. TISSUE DENSITY: There are scattered areas [...] year. [facility]ammography [facility] at [address], [address] -------- FINAL REPORT -------- Dictated By: Nilson Stubbs Dictated Date: 08/01/2025 15:43 ET Assigned Physician: Nilson Stubbs Reviewed and Electronically Signed By: Nilson Stubbs Signed Date: 08/01/2025 17:55 ET Workstation ID: [id number] Transcribed By: Self Edit Transcribed Date: 08/01/2025 15:43 ET us Self Referral Sppl IMG BI PROCEDURES Final Resul t from Last 3 Months Insurance [facility] Care Teams Curator [employer] Relationship Specialty Start Date End Date Rick Alfaro DO [address] [address] PCP - General Family Medicine 07/04/18
== END 2025-10-10 16:05 | disposition home or self-care (01) ==
LOC: HO.HMGAL 16:02
PROVIDERS: Visit Provider Registered Nurse Emergency
DX: J30.89 Other allergic rhinitis (principal)
CPT/HCPCS: 95117; 95165